=== PATIENT | male | born 1990 | race Asian ===

== ENCOUNTER 2019-04-06 07:19 | Emergency (ER) | payer OTHER ==
[~2019-04-06] VITALS: Ht 175.3 cm; Wt 61.2 kg
[2019-04-06 07:39] VITALS: BP 122/73
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
--- NOTE | 2019-04-06 08:08 | NUR ---
ED Nurse Note: PAGED XR
--- NOTE | 2019-04-06 08:09 | Emergency Room Report ---
History of Present Illness General Chief Complaint: Dyspnea/Respdistress Source: Patient Present Illness HPI Is a 28-year-old male presents after continued difficulty with breathing. He reports having symptoms for approximate 1 month. He states he had prior history of anxiety and is currently taking CBD oil. He denies any recent trauma. He states that he had been vaping with a marijuana vape but had quit for several months. Allergies: Coded Allergies: No Known Allergies (Unverified , 04/06/19) Patient History Past Medical History: see triage record Reviewed Nursing Documentation: PMH: Agreed; PSxH: Agreed Nursing Documentation-PMH Past Medical History: No Stated History Review of Systems All Other Systems: negative except mentioned in HPI Physical Exam Vital Signs Date Time Temp Pulse Resp B/P (MAP) Pulse Ox O2 Delivery O2 Flow Rate FiO2 04/06/19 07:31 97.9 76 18 122/73 (89) 98 Room Air 04/06/19 07:39 98 Sp02 EP Interpretation: reviewed, normal General Appearance: normal inspection, well appearing, no apparent distress, alert, GCS 15 Head: atraumatic ENT: normal ENT inspection, hearing grossly normal, normal voice Neck: normal inspection, full range of motion, supple, no bony tend Respiratory: normal inspection, lungs clear, normal breath sounds, no respiratory distress, no retraction, no wheezing Cardiovascular #1: regular rate, rhythm, no edema Gastrointestinal: normal inspection, normal bowel sounds, non tender, soft, no guarding, no hernia Genitourinary: no CVA tenderness Musculoskeletal: normal inspection, back normal, normal range of motion Neurologic: alert, motor strength/tone normal, oriented x3, responsive, speech normal, normal inspection Psychiatric: normal inspection, judgement/insight normal, mood/affect normal Medical Decision Making Diagnostic Impression: Primary Impression: Reactive airway disease ER Course Patient presented for shortness of breath . differential included but was not limited to anemia, pneumonia, pneumothorax, myocardial infarction, pericardial effusion, congestive heart failure, acidosis. Chest x-ray 1 view read by radiology showed no evidence of acute infiltrate. Patient appears to be stable for outpatient management. He does not have any risk for pulmonary embolism. Patient is advised to follow-up with his primary care physician for further work -up. He was advised to return if he felt worse. The patient is advised to follow up with primary care doctor in 2-3 days. Patient is advised to return if any worsening condition or if any changes in status that are concerning. This report is dictated with [employer] tier software which may occasionally lead to discrepancies related to use of this software. Chest X-Ray Diagnostic Results Chest X-Ray Diagnostic Results : Chest X-Ray Ordered: Yes # of Views/Limited/Complete: 1 View Indication: Shortness of Breath EP Interpretation: No Impression: No acute disease Last Vital Signs Date Time Temp Pulse Resp B/P (MAP) Pulse Ox O2 Delivery O2 Flow Rate FiO2 04/06/19 07:39 97.9 72 18 122/73 98 Room Air 04/06/19 07:39 98 Status: improved Scripts Albuterol Sulfate* (ALBUTEROL SULFATE MDI*) 8.5 Gm Hfa.aer.ad 2 PUFF INH Q6H, #1 EA 0 Refills Prov: Moi Kohler MD 04/06/19 Referrals: NON PHYSICIAN (PCP) Moi Kohler MD Apr 06, 2019 08:09
--- NOTE | 2019-04-06 08:30 | NUR ---
ED Nurse Note: PAGED XR ON OVERHEAD.
--- NOTE | 2019-04-06 08:52 | NUR ---
ED Nurse Note: XR AT BEDSIDE.
[2019-04-06] MEDS ORDERED: ALBUTEROL SULF8.5 GM INH (09:07)
[2019-04-06 09:30] VITALS: BP 122/66
--- NOTE | 2019-04-06 09:30 | NUR ---
ER DISCHARGE NOTE: Patient is cleared to be discharged per ERMD, pt is aox4, on room air, with stable vital signs. pt was given dc and prescription instructions, pt was able to verbalize understanding, pt id bandremoved without complications. pt is able to ambulate with steady gait. pt took all belongings accompanied by family
--- NOTE | 2019-04-06 09:54 | Diagnostic Imaging Report ---
EXAM: XR Chest, 1 View CLINICAL HISTORY: SOB TECHNIQUE: Frontal view of the chest. COMPARISON: No relevant prior studies available. FINDINGS: Lungs: Unremarkable. No consolidation. Pleural space: Unremarkable. No pneumothorax. Heart: Unremarkable. No cardiomegaly. Mediastinum: Unremarkable. Bones/joints: Unremarkable. IMPRESSION: Normal chest x-ray.
== END 2019-04-06 09:30 | disposition home or self-care (01) ==
LOC: EMR 07:50
DX: J45.909 Unspecified asthma, uncomplicated (principal); F41.9 Anxiety disorder, unspecified
CPT/HCPCS: 71045; 99283

== ENCOUNTER 2019-04-13 14:22 | Emergency (ER) | payer OTHER ==
[~2019-04-13] VITALS: Ht 175.3 cm; Wt 63.5 kg
[~2019-04-13 14:22] MED LIST: ALBUTEROL SULF8.5 GM INH
--- NOTE | 2019-04-13 14:35 | NUR ---
ED Nurse Note: Pt walked into ED w/ c/o SOB for past 6 weeks. Pt states sometimes when sleeping he will feel chest pain R side. Pt states he has no respiratory history. Pt lungs clear bilaterally. Pt is alert and orientedx4, ambulatory. Mom is present.
[2019-04-13] MEDS ORDERED: Albuterol ud Inhalation HHN ONE (14:45)
[2019-04-13 15:01] VITALS: BP 118/71
--- NOTE | 2019-04-13 15:57 | Diagnostic Imaging Report ---
EXAM: XR Chest, 1 View CLINICAL HISTORY: PAIN TECHNIQUE: Frontal view of the chest. COMPARISON: No relevant prior studies available. FINDINGS: Lungs: No consolidation. Pleural space: Unremarkable. No pneumothorax. Heart: Unremarkable. No cardiomegaly. Mediastinum: Unremarkable. Bones/joints: No acute fracture. IMPRESSION: No acute cardiopulmonary disease.
[2019-04-13 16:20] LABS: BASOPHILS % (AUTO) 0.7 % (0.0-2.0); EOSINOPHILS % (AUTO) 1.2 % (0.0-3.0); HEMATOCRIT 44.8 % (42.0-52.0); HEMOGLOBIN 15.7 G/DL (14.2-18.0); LYMPHOCYTES % (AUTO) 16.9 % (20.0-45.0); MEAN CORPUSCULAR VOLUME 91 FL (80-99); MONOCYTES % (AUTO) 4.5 % (1.0-10.0); NEUTROPHILS % (AUTO) 76.7 % (45.0-75.0); PLATELET COUNT 128 K/UL (150-450); RED BLOOD COUNT 4.95 M/UL (4.70-6.10); RED CELL DISTRIBUTION WIDTH 10.4 % (11.6-14.8); WHITE BLOOD COUNT 5.1 K/UL (4.8-10.8)
[2019-04-13 16:42] LABS: ANION GAP 13 mmol/L (5-15); BLOOD UREA NITROGEN 19 mg/dL (7-18); CALCIUM 9.6 MG/DL (8.5-10.1); CARBON DIOXIDE 23 MMOL/L (21-32); CHLORIDE 107 MMOL/L (98-107); CREATININE 0.9 MG/DL (0.55-1.30); POTASSIUM 4.3 MMOL/L (3.5-5.1); SODIUM 143 MMOL/L (136-145)
[2019-04-13 16:48] LABS: ALANINE AMINOTRANSFERASE 27 U/L (12-78); ALBUMIN 4.8 G/DL (3.4-5.0); ALBUMIN/GLOBULIN RATIO 1.8 (1.0-2.7); ALKALINE PHOSPHATASE 57 U/L (46-116); ASPARTATE AMINO TRANSFERASE 14 U/L (15-37)
--- NOTE | 2019-04-13 16:58 | NUR ---
ER DISCHARGE NOTE: Patient is cleared to be discharged per ERMD, pt is aox4, on room air, with stable vital signs. pt was given dc and prescription instructions, pt was able to verbalize understanding, pt id band and iv site removed without complications. pt is able to ambulate with steady gait. pt took all belongings. Pt notified needs to f/u with .
[2019-04-13 16:59] VITALS: BP 114/72
== END 2019-04-13 16:59 | disposition home or self-care (01) ==
LOC: EMR 15:12
DX: R06.00 Dyspnea, unspecified (principal); Z87.891 Personal history of nicotine dependence
CPT/HCPCS: 36415; 71045; 80053; 83690; 84443; 85025; 85379; 99284